=== PATIENT | male | born 1955 | race Caucasian/White ===

== ENCOUNTER 2020-07-16 10:30 | Outpatient (CLI) | payer BC, SELFPAY | END 2020-07-16 10:31 | disposition home or self-care (01) | DX: Z23 Encounter for immunization (principal) | CPT/HCPCS: 0001A; 91300 ==

== ENCOUNTER 2020-08-06 10:40 | Outpatient (CLI) | payer BC, SELFPAY | END 2020-08-06 10:41 | disposition home or self-care (01) | LOC: ANHCOVIDVC 10:40 | DX: Z23 Encounter for immunization (principal) | CPT/HCPCS: 0002A; 91300 ==